=== PATIENT | female | born 1950 | race Hispanic/Latino ===

== ENCOUNTER → 2020-02-26 | Outpatient (CLI) | payer MEDICARE, OTHER | END | disposition home or self-care (01) | LOC: OIH 09:34 | PROVIDERS: ATTEND Internal Medicine | DX: N20.0 Calculus of kidney (principal); K59.00 Constipation, unspecified; M47.814 Spondylosis without myelopathy or radiculopathy, thoracic region | CPT/HCPCS: 74018 ==